=== PATIENT | female | born 1960 | race Caucasian/White ===

== ENCOUNTER 2017-03-20 07:13 | Emergency (ER) | payer OTHER ==
[~2017-03-20] VITALS: Ht 154.9 cm; Wt 104.3 kg
[2017-03-20 08:03] VITALS: BP 98/55; Ht 154.9 cm; Wt 104.3 kg
== END 2017-03-20 10:21 | disposition home or self-care (01) ==
LOC: ED 07:13
DX: R21 Rash and other nonspecific skin eruption (principal); R19.7 Diarrhea, unspecified; L03.116 Cellulitis of left lower limb; I10 Essential (primary) hypertension; Z88.5 Allergy status to narcotic agent
CPT/HCPCS: J1885